=== PATIENT | male | born 1995 | race African-American/Black ===

== ENCOUNTER 2022-12-28 08:49 | Inpatient (IN) | payer OTHER ==
[2022-12-28] VITALS (39 sets, daily range): BP systolic 99–157; BP diastolic 45–113; PULSE 52–84; RESP 15–30; TEMP 97.8–98.6
[~2022-12-28] VITALS: Ht 188 cm; Wt 171.3 kg
[2022-12-28] MEDS ORDERED: DILTIAZEM HCL 5MG/ML 5ML VIAL IV ONE (09:15)
[2022-12-28] MEDS ORDERED: ASPIRIN 325MG EC TABLET PO ONE (09:15)
[2022-12-28 09:37] LABS: BASOPHILS % 1.3 % (0.0-2.0); EOSINOPHILS % 6.5 % (0.0-5.0); HEMATOCRIT. 47.5 % (42.0-52.0); HEMOGLOBIN. 15.6 g/dL (14.0-18.0); LYMPHOCYTES % 40.9 % (20.0-50.0); MEAN CORPUSCULAR HEMOGLOBIN 27.1 pg (28.0-32.0); MEAN CORPUSCULAR HGB CONC 32.7 g/dL (31.0-37.0); MEAN CORPUSCULAR VOLUME 82.8 fL (80.0-94.0); MEAN PLATELET VOLUME 7.7 fl (7.4-10.4); MONOCYTES % 6.7 % (2.0-8.0); NEUTROPHILS % 44.6 % (40.0-76.0); PLATELET 322 x1000/uL (130-400); RED BLOOD CELL COUNT 5.74 mill/uL (4.7-6.1); WHITE BLOOD COUNT 7.3 x1000/uL (4.5-11.0)
[2022-12-28 09:45] LABS: CHLORIDE 108 mEq/L (98-107); INDEX HEMOLYSI 1 (1-3); INDEX ICTERIC 1 (1-4); INDEX LIPEMIC 1 (1-3); POTASSIUM 3.9 mEq/L (3.5-5.1); SODIUM 138 mEq/L (136-145)
[2022-12-28 09:48] LABS: PARTIAL THROMBOPLASTIN TIME 29.1 sec (23.4-31.0); PROTHROMBIN TIME 10.9 sec (9.6-11.0)
[2022-12-28 10:01] LABS: ALANINE AMINOTRANSFERASE 59 IU/L (13-61); ALBUMIN 3.8 g/dL (3.4-5.0); ASPARTATE AMINOTRANSFERASE 25 IU/L (15-37); BILIRUBIN TOTAL 0.6 mg/dL (0.1-1.0); CALCIUM 8.2 mg/dL (8.5-10.1); CARBON DIOXIDE 25 mEq/L (21-32); GLUCOSE 101 mg/dL (70-105); PROTEIN TOTAL 7.9 g/dL (6.0-8.3); UREA NITROGEN BLOOD 9 mg/dL (7-21)
[2022-12-28 10:13] LABS: TROPONIN I HIGH SENSITIVITY 111 ng/L (<78)
[2022-12-28] MEDS ORDERED: ENOXAPARIN 150MG/ML SYR SUBCUT ONE (10:30)
[2022-12-28] MEDS ORDERED: DILTIAZEM HCL 125 MG in DEXT 5% WATER 100 ML IV ONE (10:30)
[2022-12-28] MEDS ORDERED: DILTIAZEM HCL 125 MG in DEXT 5% WATER 100 ML IV PRN (10:45)
[2022-12-28 10:49] LABS: CLARITY URINE CLEAR (CLEAR); COLOR URINE YELLOW (YELLOW); GLUCOSE URINE NEGATIVE (NEGATIVE); KETONES URINE NEGATIVE (NEGATIVE); LEUKOCYTE ESTERASE URINE NEGATIVE (NEGATIVE); NITRITE URINE NEGATIVE (NEGATIVE); OCCULT BLOOD URINE NEGATIVE (NEGATIVE); PROTEIN URINE NEGATIVE (NEGATIVE); SPECIFIC GRAVITY URINE 1.004 (1.005-1.030); UROBILINOGEN URINE 0.2 E.U./dL (0.2-1.0)
[2022-12-28] MEDS ORDERED: CLONIDINE 0.1MG TABLET PO PRN (12:30)
[2022-12-28] MEDS ORDERED: DILTIAZEM HCL 30MG TABLET PO PRN (12:30)
[2022-12-28] MEDS ORDERED: TRAMADOL 50MG TABLET PO PRN (12:30)
[2022-12-28] MEDS ORDERED: ONDANSETRON HCL 4MG/2ML INJ IV PRN (12:30)
[2022-12-28] MEDS ORDERED: GUAIFENESIN 200MG/10ML SUGAR FREE UDC PO PRN (12:30)
[2022-12-28] MEDS ORDERED: DOCUSATE SODIUM 100MG CAPSULE PO PRN (12:30)
[2022-12-28] MEDS ORDERED: ENOXAPARIN 40MG/0.4ML SYR SUBCUT SCH (12:30)
[2022-12-28] MEDS ORDERED: ACETAMINOPHEN 325MG TABLET PO PRN (12:30)
[2022-12-28] MEDS ORDERED: NALOXONE HCL 0.4MG/ML VIAL IV PRN (12:45)
[2022-12-28] MEDS: ENOXAPARIN 40MG/0.4ML SYR SUBCUT SCH ×2 (14:04→22:02)
[2022-12-28] MEDS ORDERED: IOHEXOL-350 100 ML BOTTLE ONE (15:06)
[2022-12-28] MEDS: METOPROLOL TARTRATE 25MG TABLET PO SCH ×2 (15:43→21:38)
[2022-12-28 17:20] LABS: TROPONIN I HIGH SENSITIVITY 124 ng/L (<78)
[2022-12-28 20:05] LABS: *AMPHETAMINES SCREEN URINE NEGATIVE (NEGATIVE); *BARBITURATES SCREEN URINE NEGATIVE (NEGATIVE); *BENZODIAZEPINES SCREEN URINE NEGATIVE (NEGATIVE); *COCAINE SCREEN URINE NEGATIVE (NEGATIVE); CANNABINOID URINE SCREEN NEGATIVE (NEGATIVE); ECSTASY MDMA SCREEN URINE NEGATIVE (NEGATIVE); OPIATES URINE SCREEN NEGATIVE (NEGATIVE); PHENCYCLIDINE URINE SCREEN NEGATIVE (NEGATIVE)
[2022-12-29] VITALS (54 sets, daily range): BP systolic 83–138; BP diastolic 34–110; PULSE 47–82; RESP 10–34; TEMP 98–99
[2022-12-29 00:12] LABS: TROPONIN I HIGH SENSITIVITY 119 ng/L (<78)
[2022-12-29 05:29] LABS: BASOPHILS % 1.2 % (0.0-2.0); EOSINOPHILS % 7.1 % (0.0-5.0); HEMATOCRIT. 43.8 % (42.0-52.0); HEMOGLOBIN. 14.2 g/dL (14.0-18.0); MEAN CORPUSCULAR HEMOGLOBIN 26.8 pg (28.0-32.0); MEAN CORPUSCULAR HGB CONC 32.5 g/dL (31.0-37.0); MEAN CORPUSCULAR VOLUME 82.4 fL (80.0-94.0); MEAN PLATELET VOLUME 7.8 fl (7.4-10.4); MONOCYTES % 8.6 % (2.0-8.0); NEUTROPHILS % 45.1 % (40.0-76.0); PLATELET 284 x1000/uL (130-400); RED BLOOD CELL COUNT 5.32 mill/uL (4.7-6.1); RED CELL DISTRIBUTION WIDTH 14.5 % (11.6-14.6); WHITE BLOOD COUNT 6.5 x1000/uL (4.5-11.0)
[2022-12-29 05:36] LABS: CHLORIDE 105 mEq/L (98-107); INDEX HEMOLYSI 1 (1-3); INDEX ICTERIC 1 (1-4); INDEX LIPEMIC 1 (1-3); POTASSIUM 4.1 mEq/L (3.5-5.1); SODIUM 137 mEq/L (136-145)
[2022-12-29 07:11] LABS: ALANINE AMINOTRANSFERASE 51 IU/L (13-61); ALBUMIN 3.5 g/dL (3.4-5.0); ASPARTATE AMINOTRANSFERASE 20 IU/L (15-37); BILIRUBIN TOTAL 0.7 mg/dL (0.1-1.0); CALCIUM 8.5 mg/dL (8.5-10.1); CARBON DIOXIDE 26 mEq/L (21-32); CHOLESTEROL 136 mg/dL (<200); CREATININE 0.9 mg/dL (0.6-1.3); GLUCOSE 78 mg/dL (70-105); HDL CHOLESTEROL 46 mg/dL (40-59); LDL CHOLESTEROL 85 mg/dL (5-100); T4 FREE 0.95 ng/dL (0.76-1.46); UREA NITROGEN BLOOD 10 mg/dL (7-21)
[2022-12-29] MEDS: METOPROLOL TARTRATE 25MG TABLET PO SCH ×2 (09:04→21:12)
[2022-12-29] MEDS: ENOXAPARIN 40MG/0.4ML SYR SUBCUT SCH ×2 (09:04→21:11)
[2022-12-29] MEDS ORDERED: DIPHENHYDRAMINE 12.5MG/5ML UDC PO NR (23:30)
[2022-12-30 04:15] VITALS: BP 117/61; PULSE 56; RESP 20; TEMP 97.8
[2022-12-30 08:00] VITALS: BP 115/61; PULSE 63; RESP 18; TEMP 98.5
[2022-12-30] MEDS: METOPROLOL TARTRATE 25MG TABLET PO SCH (08:44)
[2022-12-30] MEDS: ENOXAPARIN 40MG/0.4ML SYR SUBCUT SCH (08:45)
[2022-12-30 12:00] VITALS: BP 119/81; PULSE 71; RESP 20; TEMP 98.5
[2022-12-30 13:46] VITALS: BP 119/81; PULSE 63; TEMP 98.5; O2SAT 98
== END 2022-12-30 14:35 | disposition home or self-care (01) | DRG 310 ==
LOC: ER 08:49 → CVICU 11:17 → 3WST 12-29 15:29
PROVIDERS: ADMIT Hospitalist; ATTEND Hospitalist
DX: I48.91 Unspecified atrial fibrillation (principal); Z82.49 Family history of ischemic heart disease and other diseases of the circulatory system
CPT/HCPCS: 36415; 71045; 71275; 80053; 80061; 80305; 81003; 84439; 84443; 84484; 85025; 85379; 93005; 93306; 99291; J1650; J3490; J7060; Q0163; Q9967